=== PATIENT | female | born 1970 | race Caucasian/White ===

== ENCOUNTER 2017-01-04 18:06 | Emergency (ER) | payer OTHER ==
[2017-01-04 19:25] VITALS: BP 184/97
[2017-01-04 19:37] LABS: microscopic required? YES; urine erythrocyte NEGATIVE (NEGATIVE)
== END 2017-01-04 19:01 | disposition home or self-care (01) ==
LOC: ED 18:06
PROVIDERS: Emergency Medicine
DX: N39.0 Urinary tract infection, site not specified (principal); I10 Essential (primary) hypertension
CPT/HCPCS: 82962